=== PATIENT | male | born 2000 | race Caucasian/White ===

== ENCOUNTER 2020-02-13 16:31 | Emergency (ER) | payer OTHER ==
[~2020-02-13] VITALS: Ht 190.5 cm; Wt 93.1 kg
[2020-02-13 16:38] VITALS: BP 131/71
[2020-02-13] MEDS ORDERED: NAPR-682 PO (17:02)
--- NOTE | 2020-02-13 17:03 | PHYS DOC ---
General Adult EDM: Chief Complaint: TOE PROBLEM HPI: HPI: Patient is a 19-year-old male who present to ER today for evaluation of ingrown nail on his left big toe that he been dealing with for the last 3 months. Patient said he decided come in today because he was told by the urgent care that he needs something done. Patient went to urgent care before he came here who prescribed him some antibiotic already. Patient denies any history of diabetic, denies any fever. Patient denies any injury. Review of Systems: Review of Systems: Constitutional: Denies fever or chills Eyes: Denies change in visual acuity HENT: Denies nasal congestion or sore throat Respiratory: Denies cough or shortness of breath Cardiovascular: Denies chest pain or edema GI: Denies abdominal pain, nausea, vomiting, bloody stools or diarrhea : Denies dysuria Musculoskeletal: Denies back pain , positive for left great toe pain Integument: Denies rash Neurologic: Denies headache, focal weakness or sensory changes Endocrine: Denies polyuria or polydipsia Lymphatic: Denies swollen glands Psychiatric: Denies depression or anxiety Heart Score: Risk Factors: Risk Factors: DM, Current or recent (<one month) smoker, HTN, HLP, family hi story of CAD, obesity. Risk Scores: Score 0 - 3: 2.5% MACE over next 6 weeks - Discharge Home Score 4 - 6: 20.3% MACE over next 6 weeks - Admit for Clinical Observation Score 7 - 10: 72.7% MACE over next 6 weeks - Early Invasive Strategies Physical Exam: PE: Constitutional: Well developed, well nourished, no acute distress, non-toxic appearance. [] HENT: Normocephalic, atraumatic, bilateral external ears normal, Eyes: PERRLA, EOMI, conjunctiva normal, no discharge. [] Neck: Normal range of motion, no tenderness, supple, no stridor. [] Skin: Warm, dry, no erythema, no rash. [] Back: No tenderness, no CVA tenderness. [] Extremities: Left great toe is swollen with ingrown toenail, tender to palpation, no drainage, no cyanosis, no clubbing, ROM intact, no edema. [] Neurologic: Alert and oriented X 3, normal motor function, normal sensory function, no focal deficits noted. [] Psychologic: Affect normal, judgement normal, mood normal. [] EKG: EKG: [] Radiology/Procedures: Radiology/Procedures: [] Course & Med Decision Making: Course & Med Decision Making Pertinent Labs and Imaging studies reviewed. (See chart for details) Patient is a 19-year-old man who was found to have ingrown nail that he been experiencing for 3 months on his left great toe. There is no evidence of cellulitis to his left foot. The infection is limited to the left great toe area patient will need to follow-up with the lead mobile developer. Patient was given the name of the lead mobile developer who he will need to call on Sunday for follow-up next week. Patient said he is on antibiotic already he need to continue to take the antibiotic. Sharmilaon Disclaimer: Eligio Disclaimer: This electronic medical record was generated, in whole or in part, using a voice recognition dictation system. Departure Departure: Impression: Primary Impression: Ingrown left greater toenail Disposition: HOME/RESIDENCE PRIOR TO ADM Condition: STABLE Referrals: PCP,NO (PCP) Additional Instructions: Please call this Parts Coordinator for follow up next week for definitive care. Dr. Anahi Cooley at [phone] Scripts Naproxen Sodium (ANAPROX DS) 550 Mg Tablet 1 TAB PO BID for left toe pain for 15 Days, #30 TAB 0 Refills Prov: ZEENAT TRIVEDI DO 02/13/20 ZEENAT TRIVEDI DO February 13, 2020 17:03
== END 2020-02-13 17:17 | disposition home or self-care (01) ==
LOC: EDBD 16:31 → ER 16:31
DX: L60.0 Ingrowing nail (principal)
CPT/HCPCS: 99282